=== PATIENT | female | born 2000 | race Caucasian/White ===

== ENCOUNTER 2023-08-29 20:21 | Emergency (ER) | payer OTHER ==
[~2023-08-29] VITALS: Ht 154.9 cm; Wt 63.6 kg
[2023-08-29 20:51] VITALS: BP 137/78; PULSE 79; RESP 18; TEMP 98.5
[2023-09-01 03:07] LABS: HEPATITIS A ANTIBODY IGM Negative (Negative); HEPATITIS B CORE IGM Negative (Negative); HEPATITIS C AB (EIA) Non Reactive (Non Reactive)
== END 2023-08-29 23:00 | disposition home or self-care (01) ==
LOC: EMS 20:29
DX: S61.239A Puncture wound without foreign body of unspecified finger without damage to nail, initial encounter (principal); W26.8XXA Contact with other sharp object(s), not elsewhere classified, initial encounter; Y93.89 Activity, other specified; Y92.89 Other specified places as the place of occurrence of the external cause; Y99.8 Other external cause status
CPT/HCPCS: 80074; 99283